=== PATIENT | female | born 1935 | race African-American/Black ===

== ENCOUNTER 2016-10-14 10:55 | Emergency (ER) | payer MEDICARE ==
[2015-11-08 13:45] VITALS: BMI 33.3
[~2016-10-14 10:55] MED LIST: ASPIRIN81 MG PO; COZAAR100 MG PO; DITROPAN X10 MG/BOTT PO; DITROPAN X5 MG/BOTTL PO; HEPARIN SO1000 UNIT/ IV; HUMULIN R100 U/ML SC; HYDRALAZINE HCL50 MG PO; LASIX40 MG PO; MEGACE40 MG PO; MOBIC7.5 MG PO; MULTI-DAY VITAM1 TAB PO; NAMENDA10 MG PO; NAMENDA5 MG PO; NORVASC10 MG PO; OMEGA-3100 MG PO; PROCRIT/EP4000 UNITS SQ; PROTONIX40 MG PO; RENAGEL800 MG PO; RENVELA800 MG PO; SENSIPAR30 MG PO; TOPROL XL100 MG PO; ULTRAM50 MG PO; ZOFRAN4 MG PO
[2016-10-14 11:59] LABS: APPEARANCE HAZY (CLEAR); COLOR STRAW (YELLOW); LEUKOCYTE ESTERASE NEGATIVE (NEGATIVE); SPECIFIC GRAVITY 1.005 (1.005-1.020)
[2016-10-14 12:00] LABS: BACTERIA FEW /hpf (NONE SEEN); BILIRUBIN NEGATIVE (NEGATIVE); EPITHELIAL CELLS 0-5 /hpf (0-5); GLUCOSE 100 mg/dL (NEGATIVE); KETONE NEGATIVE (NEGATIVE); NITRITE NEGATIVE (NEGATIVE); PROTEIN NEGATIVE (NEGATIVE); UROBILINOGEN NORMAL (NORMAL); WHITE CELLS - URINE 0-5 /hpf (0-5)
[2016-10-14 12:06] LABS: UDS - AMPHET NEGATIVE QUAL (NEGATIVE); UDS - BARB NEGATIVE QUAL (NEGATIVE); UDS - BENZO NEGATIVE QUAL (NEGATIVE); UDS - COCAINE NEGATIVE QUAL (NEGATIVE); UDS - METH NEGATIVE QUAL (NEGATIVE); UDS - OPIATE NEGATIVE QUAL (NEGATIVE); UDS - PCP NEGATIVE QUAL (NEGATIVE); UDS - THC NEGATIVE QUAL (NEGATIVE)
[2016-10-14 13:12] LABS: ALBUMIN 3.4 g/dL (3.4-5.0); ANION GAP 13.1 mmol/L (8-16); BILIRUBIN - TOTAL 0.3 mg/dL (0.2-1.3); CALCIUM 8.8 mg/dL (8.5-10.1); CARBON DIOXIDE 27.5 mmol/L (21.0-32.0); CREATININE - SERUM 3.7 mg/dL (0.6-1.3); POTASSIUM - SERUM 3.6 mmol/L (3.5-5.1); PROTEIN - SERUM 6.4 g/dL (6.4-8.2)
[2016-10-14 13:29] LABS: BASOPHILS 0.4 % (0.0-2.0); EOSINOPHILS 1.9 % (0-7); HEMATOCRIT 33.1 % (36.0-48.0); HEMOGLOBIN 10.5 g/dL (12-16); IMMATURE GRANULOCYTES 1.1 % (0-5); LYMPHOCYTES 20.2 % (15-50); MCH 30.5 pg (26.0-34.0); MCHC 31.7 g/dL (31.0-37.0); MCV 96.2 fL (80.0-100.0); MEAN PLATELET VOLUME 11.7 fL (7.4-10.4); MONOCYTES 22.8 % (2-11); NEUTROPHILS 53.6 % (40-80); RBC 3.44 10x6/uL (4.00-5.40); RDW 15.8 % (11.5-14.5); WBC 7.2 10x3/uL (4.8-10.8)
[2016-10-14 13:30] LABS: PLATELET COUNT 207 10x3/uL (130-400)
== END 2016-10-14 14:36 | disposition home or self-care (01) ==
LOC: D.ER 10:55
PROVIDERS: Emergency Medicine
DX: F03.90 Unspecified dementia, unspecified severity, without behavioral disturbance, psychotic disturbance, mood disturbance, and anxiety (principal); E11.9 Type 2 diabetes mellitus without complications; I12.9 Hypertensive chronic kidney disease with stage 1 through stage 4 chronic kidney disease, or unspecified chronic kidney disease; N18.9 Chronic kidney disease, unspecified; M19.90 Unspecified osteoarthritis, unspecified site; E21.3 Hyperparathyroidism, unspecified; I49.3 Ventricular premature depolarization